=== PATIENT | male | born 1945 | race Caucasian/White ===

== ENCOUNTER 2019-03-19 18:52 | Emergency (ER) | payer MEDICARE, OTHER ==
[~2019-03-19] VITALS: Ht 172.7 cm; Wt 81.7 kg
[2019-03-19] MEDS ORDERED: METOPROLOL TART25 MG PO (19:13)
[2019-03-19] MEDS ORDERED: LOSARTAN POTASS50 MG PO (19:14)
[2019-03-19] MEDS ORDERED: HYDROCHLOROTH12.5 M1 PO (19:14)
[2019-03-19] MEDS ORDERED: PRAVASTATIN SOD20 MG PO (19:14)
[2019-03-19] MEDS ORDERED: INDOMETHACIN50 MG PO (19:15)
[2019-03-19] MEDS ORDERED: PROSTATE HEALT1 EAC1 PO (19:16)
[2019-03-19] MEDS ORDERED: CENTRUM SILVER1 EAC3 PO (19:16)
[2019-03-19] MEDS ORDERED: K-TAB ER20 MEQ PO (19:16)
[2019-03-19] MEDS ORDERED: FOLIC ACID0.4 MG PO (19:17)
[2019-03-19] MEDS ORDERED: BIOTIN0.5 GM MISC (19:17)
[2019-03-19] MEDS ORDERED: OCUVITE LUTEIN1 EAC1 PO (19:18)
[2019-03-19] MEDS ORDERED: FLUTICASONE PRO16 GM NAS (19:18)
[2019-03-19] MEDS ORDERED: NORCO 5-325 TA1 EACH PO (21:21)
== END 2019-03-19 21:28 | disposition home or self-care (01) ==
LOC: ED 18:52
DX: J06.9 Acute upper respiratory infection, unspecified (principal); R58 Hemorrhage, not elsewhere classified; R10.11 Right upper quadrant pain; I10 Essential (primary) hypertension; Z79.899 Other long term (current) drug therapy
CPT/HCPCS: 74177; 80053; 81001; 83690; 85025; 99284-25; J1170; J2405

== ENCOUNTER 2022-04-13 08:40 | Emergency (ER) | payer MEDICARE, BC ==
[~2022-04-13] VITALS: Ht 172.7 cm; Wt 81.7 kg
[~2022-04-13 08:40] MED LIST: BIOTIN0.5 GM MISC; CENTRUM SILVER1 EAC3 PO; FLUTICASONE PRO16 GM NAS; FOLIC ACID0.4 MG PO; HYDROCHLOROTH12.5 M1 PO; INDOMETHACIN50 MG PO; K-TAB ER20 MEQ PO; LOSARTAN POTASS50 MG PO; METOPROLOL TART25 MG PO; NORCO 5-325 TA1 EACH PO; OCUVITE LUTEIN1 EAC1 PO; PRAVASTATIN SOD20 MG PO; PROSTATE HEALT1 EAC1 PO
[2022-04-13] MEDS ORDERED: CEPHALEXIN500 MG PO (09:31)
== END 2022-04-13 09:49 | disposition home or self-care (01) ==
LOC: ED 08:40
DX: L03.211 Cellulitis of face (principal); I10 Essential (primary) hypertension; E78.00 Pure hypercholesterolemia, unspecified; Z79.899 Other long term (current) drug therapy
CPT/HCPCS: 99283